=== PATIENT | male | born 2005 | race Two or more races ===

== ENCOUNTER → 2025-02-06 | Outpatient (CLI) | payer MEDICAID, SELFPAY ==
--- NOTE | 2025-02-06 14:19 | XR_ITS ---
Examination: Hand, left 3 views Technique: Hand AP, oblique, lateral 3 views Date and time of exam: February 06, 2025 1459 hours INDICATIONS: Palpable mass in the wrist noticed this month. FINDINGS: Soft tissue mass adjacent to the distal ulna, poorly defined but measuring at least 2.5 x 1.2 cm No fracture No cortical bone destruction No foreign body IMPRESSION: Soft tissue mass adjacent to the distal ulna as above
--- NOTE | 2025-02-06 14:19 | XR_ITS ---
Examination: Wrist, left 3 views Technique: Wrist AP, oblique, lateral 3 views Date and time of exam: February 06, 2025 1459 hours INDICATIONS: Palpable mass in the wrist this month FINDINGS: Circumscribed soft tissue mass adjacent to the distal ulna, proximal distal measurement 3.0 cm mediolateral dimension 1.2 cm No adjacent cortical bone erosion No opaque foreign body No fracture IMPRESSION: Soft tissue mass adjacent to the distal ulna
== END | disposition home or self-care (01) ==
PROVIDERS: PCP Nurse Practitioner Gerontology; Referring Provider Nurse Practitioner Gerontology; Visit Provider Nurse Practitioner Gerontology
DX: R22.32 Localized swelling, mass and lump, left upper limb (principal)
CPT/HCPCS: 73110; 73130